=== PATIENT | female | born 1965 | race Hispanic/Latino ===

== ENCOUNTER → 2024-05-24 | Outpatient (CLI) | payer MEDICARE ==
[2024-05-24 12:49] LABS: ALBUMIN 3.4 g/dL (3.5-5.0); BILIRUBIN,TOTAL 0.7 mg/dL (0.2-1.0); CREATININE 0.9 mg/dL (0.5-1.0); POTASSIUM 4.1 mmol/L (3.5-5.1); TOTAL PROTEIN, SERUM 7.1 g/dL (6.0-8.3)
== END | disposition home or self-care (01) ==
LOC: LAB 09:42
PROVIDERS: ATTEND Internal Medicine Cardiovascular Disease
DX: E78.5 Hyperlipidemia, unspecified (principal); R07.89 Other chest pain
CPT/HCPCS: 36415; 80053; 80061